=== PATIENT | male | born 1995 | race African-American/Black ===

== ENCOUNTER 2019-03-28 20:51 | Emergency (ER) | payer SELFPAY ==
[~2019-03-28] VITALS: Ht 167.6 cm; Wt 61.2 kg
--- NOTE | 2019-03-28 20:57 | Emergency Room Report ---
History of Present Illness General Chief Complaint: "I'm chilling" Source: Patient Present Illness HPI 24-year-old male history of polysubstance abuse presents with initial altered mental status, patient reports that "he is chilling," he states he is good, he states he took some LSD he is able to state where he is, he wants to leave has no medical complaints at this time no known alleviating factors aggravating factors taking LSD, severity is mild, intermittent Allergies: Coded Allergies: No Known Allergies (Unverified , 07/22/14) Patient History Past Medical History: see triage record Social History: Reports: smoking, drug use Reviewed Nursing Documentation: PMH: Agreed; PSxH: Agreed Review of Systems All Other Systems: negative except mentioned in HPI Physical Exam Vital Signs Date Time Temp Pulse Resp B/P (MAP) Pulse Ox O2 Delivery O2 Flow Rate FiO2 03/28/19 21:00 98.3 84 14 133/85 99 Room Air Sp02 EP Interpretation: reviewed, normal General Appearance: well appearing, no apparent distress, alert Head: normocephalic, atraumatic Eyes: bilateral eye PERRL, bilateral eye EOMI ENT: uvula midline, moist mucus membranes Neck: supple, thyroid normal, supple/symm/no masses Respiratory: lungs clear, no respiratory distress, no retraction, no accessory muscle use Cardiovascular #1: normal peripheral pulses, regular rate, rhythm, no edema, no gallop, no murmur Gastrointestinal: non tender, soft, no guarding, no rebound Musculoskeletal: normal inspection Neurologic: alert, oriented x3 Psychiatric: mood/affect normal Skin: no rash, warm/dry Medical Decision Making Diagnostic Impression: Primary Impression: Lysergic acid diethylamide (LSD) abuse ER Course 24-year-old male presents with possible drug reaction/use Patient with no acute medical problems at this time He has no complaints Dispo home w/ return precautions Disposition: HOME, SELF-CARE Condition: Stable [facility] Patient Instructions: Stimulant Use Disorder-Methamphetamines Additional Instructions: The patient was provided with discharge instructions, notified to follow-up with a primary care doctor and or specialist in the next 24-48 hours, and to return to the ED if they have worsening of their symptoms. Please note that this report is being documented using [employer] technology. This can lead to erroneous entry secondary to incorrect interpretation by the dictating instrument. Shane Gutiérrez MD Mar 28, 2019 20:57
[2019-03-28 21:00] VITALS: BP 133/85
[2019-03-28] MEDS ORDERED: AMMONIA INHALANT INH ONE (21:00)
--- NOTE | 2019-03-28 21:00 | NUR ---
ED Nurse Note: PATIENT BROUGHT IN BY [facility] DUE TO BEHAVIORAL DISTRUBANCE. PATIENT WAS FOUND [place] ON [address]. UPON ARRIVAL PATIENT AO4 NAD VSS. STATES HE GOT HIGH; REFUSED TO STATE WHAT SUBSTANCE. PATIENT IS CURRENTLY COHERENT AND STATES HE WANTS TO GO HOME. PATIENT DENIES BEING HOMELESS OR MEDICAL PROBLEMS. ERMD AT BEDSIDE FOR EVALUATION. PATIENT AMBULATED TO THE BATHROOM WITH STEADY GAIT.
[2019-03-28 21:40] VITALS: BP 132/88
--- NOTE | 2019-03-28 21:40 | NUR ---
ER DISCHARGE NOTE: PATIENT IS CLEARED FOR DISCHARGE PER ERMD. PATIENT IS AO4. NAD. VSS. PATIENT ABLE TO AMBULATE STEADY WITHOUT ASSISTANCE. PROVIDED PT WITH DC INSTRUCTIONS; VERBALIZED UNDERSTANDING. OFFERED PATIENT NOURISHMENT; PATIENT REFUSED. PATIENT REFUSED TO SIGN PAPER WORK. PATIENT STATES "FUCK YOU BITCH I DONT EVEN WANT TO BE HERE" REMOVED [place]. PATIENT REFUSED TO CHANGE OUT OF GOWN. PATIENT ESCORTED OUT OF ED WITH SECURITY. PATIENT TOOK ALL BELONGINGS.
== END 2019-03-28 21:40 | disposition home or self-care (01) ==
LOC: EDBD 20:51 → EMR 21:40
DX: F16.10 Hallucinogen abuse, uncomplicated (principal)
CPT/HCPCS: 99281